=== PATIENT | female | born 1940 | race Caucasian/White ===

== ENCOUNTER 2017-07-14 17:30 | Inpatient (IN) | payer MEDICARE ==
[2017-07-14 18:19] LABS: #Eosinphils 0.3 thou/uL (0.0-0.7); #Lymphocytes 2.8 thou/uL (1.20-3.40); #Monocytes 0.8 thou/uL (0.11-0.59); #Neutrophils 7.7 thou/uL (1.40-6.50); %Basophils 0.3 % (0.0-1.0); %Eosinophils 2.3 % (0.0-10.0); %Lymphocytes 24.2 % (21.0-51.0); %Monocytes 6.6 % (0.0-10.0); %Neutrophils 66.6 % (42.0-75.0); Hemoglobin 13.5 g/dL (12.0-16.0); Mean Corpuscular HGB CONC 32.6 g/dL (32.0-36.0); Mean Corpuscular Volume 91.9 fl (81.0-99.0); Mean Platelet Volume 6.9 fL (7.4-10.4); Platelet Count 385 thou/uL (130-400); RBC Distribution Width 13.7 % (11.5-14.5); White Blood Cell (WBC) Count 11.6 thou/uL (4.8-10.8)
[2017-07-14 18:38] LABS: Anion Gap 15 mmol/L (10-20); BUN (Urea Nitrogen) 11 mg/dL (9.8-20.1); Calc. Creatinine Clearance 0 mL/min (70-130); Calcium 9.6 mg/dL (7.8-10.44); Carbon Dioxide 24 mmol/L (23-31); Chloride 103 mmol/L (98-107); Estimated GFR-MDRD 39; Glucose 97 mg/dL (83-110); Potassium 4.1 mmol/L (3.5-5.1); Sodium 138 mmol/L (136-145)
[2017-07-14] MEDS ORDERED: Fentanyl 100 MCG/2 ML VIAL ONE (22:20)
[2017-07-14 23:01] LABS: Bilirubin Negative (Negative); Blood, Urine Negative (Negative); Clarity CLOUDY (Clear); Glucose, Urine (Dipstick) Negative (Negative); Leukocyte Moderate (Negative); Nitrite Negative (Negative); Protein, Urine (Dipstick) Negative (Neg-Trace); Specific Gravity, Urine 1.016 (1.002-1.036); Urobilinogen 0.2 mg/dL (0.2-1.0); pH, Urine 5.5 (5.0-9.0)
[2017-07-14 23:02] LABS: Bacteria/HPF None Seen HPF (None Seen); Pathc Cast-AUWi Flag 1.89 (0-2.49); RBC/HPF 0-3 HPF (0-3)
[2017-07-14 23:03] LABS: Yeast-AUWi Flag 200.5 (0-25.0)
[2017-07-14 23:10] LABS: Hyaline Casts/LPF 7-10 HYALINE CAST LPF (0-3 Hyaline); Yeast-All Forms 2+ HPF (None Seen)
[2017-07-14] MEDS ORDERED: cefTRIAXone\\ROCEPHIN 2 GM in Sodium Chloride 0.9% 100 ML IVPB SCH (23:30)
[2017-07-15] MEDS ORDERED: Acetaminophen 325 MG TAB PO PRN (03:27)
[2017-07-15] MEDS ORDERED: Ondansetron HCl/PF 4 MG/2 ML Vial IVP PRN ×2 (03:27→14:03)
[2017-07-15] MEDS ORDERED: Ondansetron ODT 4 MG TAB SL PRN (03:27)
[2017-07-15] MEDS ORDERED: Sodium Chloride 0.9% 1,000 ML IV SCH (03:30)
[2017-07-15 03:37] VITALS: BMI 23.8
[2017-07-15] MEDS ORDERED: Ondansetron ODT 4 MG TAB PO PRN ×2 (04:51→12:54)
--- NOTE | 2017-07-15 05:53 | HP ---
DATE OF ADMISSION: 07/15/2017 ADMITTING PHYSICIAN: Earl Peña M.D. PRIMARY CARE PHYSICIAN: Oksana Hare M.D. CHIEF COMPLAINT: "It mo when I pee." HISTORY OF PRESENT ILLNESS: The patient is a 77-year-old female with history of mild dementia who pr esents complaining of dysuria approximately for 1 month. The patient denies fever, but reports that she has discomfort and pain whenever she urinates. She reported that she tried to self-treat with wa ter and other fluids at home and her symptoms have become worse over the last month. The condition i s exacerbated with urination and has been relieved by nothing. She denies chest pain, shortness of b reath, and diarrhea or constipation. REVIEW OF SYSTEMS: The following complete review of systems was negative, unless otherwise mentioned in the HPI or below: Constitutional: Weight loss or gain, sense of well-being, ability to conduct usual activities, exerc ise tolerance. Skin/Breast: Rash, itching, changes in hair growth or loss, nail changes, breast lumps, tenderness, swelling, nipple discharge. Eyes: Vision, double vision, tearing, blind spots, pain. ENT/Mouth: Headaches (location, time of onset, duration, precipitating factors), vertigo, lightheade dness, injury. Vision, double vision, tearing, blind spots, pain, nose bleeding, colds, obstruction, discharge, dental difficulties, gingival bleeding, dentures, neck stiffness, pain, tenderness, masses in thyroid or other areas. Cardiovascular: Precordial pain, substernal distress, palpitations, syncope, dyspnea on exertion, or thopnea, nocturnal paroxysmal dyspnea, edema, cyanosis, hypertension, heart murmurs, varicosities, ph lebitis, claudication. Respiratory: Pain, shortness of breath, wheezing, stridor, cough, hemoptysis, fever or night sweats. Gastrointestinal: Poor appetite, dysphagia, indigestion, abdominal pain, heartburn, eructation, naus ea, vomiting, hematemesis, jaundice, constipation, or diarrhea, abnormal stools (avi-colored, tarry, bloody, greasy, foul smelling), flatulence, hemorrhoids, recent changes in bowel habits. Genitourinary: Urgency, frequency, dysuria, nocturia, hematuria, polyuria, oliguria, unusual (or zabrina nge in) color of urine, stones, hesitancy, change in size of stream, dribbling, acute retention or in continence, libido, potency. Musculoskeletal: Pain, swelling, redness or heat of muscles or joints, limitation, of motion, muscul ar weakness, atrophy, cramps. Neurologic/Psychiatric: Convulsions, paralyses, tremor, incoordination, paresthesias, difficulties w ith memory of speech, sensory or motor disturbances, or muscular coordination (ataxia, tremor), emoti onal problems, anxiety, depression, previous psychiatric care, unusual perceptions, hallucinations. Allergy/Immunologic: Skin rash, anemia, bleeding tendency, polydipsia, polyuria, intolerance to heat or cold. 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 Dysl ipidemia and COPD. PAST SURGICAL HISTORY: Positive for partial colectomy with colostomy, appendectomy, cholecystectomy, hysterectomy, orthopedic surgery, left hip fracture repair, and left femur fracture repair. PSYCHIATRIC HISTORY: Positive for depression and signs of dementia. FAMILY HISTORY: Noncontributory to this case. SOCIAL HISTORY: She continues to smoke one pack per day, denies alcohol, denies illicit drugs. HOME MEDICATIONS: Unable to obtain at this point. KNOWN DRUG ALLERGIES: CODEINE, LIDOCAINE, NOVOCAIN, and SULFA DRUGS. PHYSICAL EXAMINATION: VITAL SIGNS: Temperature 98.0, blood pressure 111/73, pulse 93, temperature 98, satting 95% on room air. GENERAL: She is somewhat disheveled, in no apparent distress, answers questions appropriately. HEAD: Normocephalic, atraumatic. EYES: PERRL. Extraocular muscles intact. ENT: Within normal limits. NECK: Supple, full range of motion. Trachea midline. CHEST: No rhonchi, no wheezes. CARDIOVASCULAR: Regular rate and rhythm. Grade 2/6 systolic ejection murmur. ABDOMEN: Tenderness in the suprapubic region, right lower quadrant has a colostomy bag which appears to be operating properly. EXTREMITIES: No clubbing, cyanosis or edema. NEUROLOGIC: Oriented to person and place. Cranial nerves II-XII grossly intact. SKIN: Warm, dry, normal in color. LABORATORY DATA AND IMAGES: CBC shows a white count of 11.6, hemoglobin 13.5, hematocrit 41.3, plate lets 385, no left shift. Chemistry shows sodium 138, potassium 4.1, chloride 103, BUN 11, creatinine 1.34. Lactic acid 4.0, calcium 9.6. Urinalysis: Yellow, cloudy, moderate leukocytes, no bacteria seen, 11-20 wbc's, 2+ yeast. ASSESSMENT: 1. Cystitis. 2. Sepsis. PLAN: The patient admitted to the medical floor. She will be treated with IV antibiotics. We will also administer her IV fluids. Once the patient's medication record is in our system, we will resume her home medication for chronic medical problems as well. Deep venous thrombosis prophylaxis will b e via sequential compression devices. We will monitor her for any untoward conditions or development s.
[2017-07-15] MEDS: Sodium Chloride 0.9% 1,000 ML IV SCH ×2 (13:05→19:59)
--- NOTE | 2017-07-15 14:17 | PDOC.PN ---
- Subjective Encounter Start Date: 07/15/17 Encounter Start Time: 14:00 Subjective: f/u for sepsis of suspected urinary origin receiving Levaquin. -: Nsg reports hypotension with low-volume IVF's. No CP, some cough. - Objective MAR Reviewed: Yes Vital Signs & Weight: Vital Signs (12 hours) Temp Pulse Resp BP Pulse Ox 07/15/17 11:00 97.4 F L 104 H 20 100/49 L 95 07/15/17 08:00 98.7 F 108 H 20 137/80 92 L 07/15/17 03:25 97.5 F L 97 18 122/64 98 07/15/17 03:23 97.5 F L 97 18 98 Weight Weight 130 lb 3 oz Result Diagrams: 07/14/17 18:07 07/14/17 18:07 Additional Labs: Microbiology 07/14/17 22:44 Urine Straight Catheter Urine Culture - Preliminary NO GROWTH AT 12 HOURS Radiology Reviewed by me: Yes (PCXR - pending) Phys Exam - Physical Examination alert, responds to questions, appears anxious HEENT: PERRLA, oral pharynx no lesions Neck: no JVD, supple coarse rhonchi bilat Cardiovascular: RRR Gastrointestinal: soft, non-tender, no distention, positive bowel sounds Musculoskeletal: no edema, pulses present Neurological: moves all 4 limbs Psychiatric: A&O x 3 Skin: normal turgor, cap refill <2 seconds Dx/Plan (1) Sepsis Code(s): A41.9 - SEPSIS, UNSPECIFIED ORGANISM Status: Suspected Comment: Suspected due to urinary source, continue IV abx, monitor cx results, increase IVF's 150ml/h (2) UTI (urinary tract infection) Status: Acute Comment: Suspected though initial Ucx negative, continue Levaquin 750mg IV daily, add Rocephin 2gm IV daily for double-coverage pending final cx results (3) COPD (chronic obstructive pulmonary disease) Status: Chronic Comment: No exacerbation currently, Duonebs q6h prn (4) Physical deconditioning Code(s): R53.81 - OTHER MALAISE Status: Chronic (5) Hypotension Status: Acute Comment: Secondary to sepsis and dehydration, continue IVF's, titrate IVF's to response - Plan continue antibiotics, PT/OT, social insurance adviser, respiratory therapy, DVT proph w/ SCDs Continue IV Levaquin -: Add Rocephin 2gm IV daily -: Increase IVF's 150ml/h -: Add Duonebs q6h prn -: AM lab: BMP, CBC * PCXR today
[2017-07-15] MEDS: cefTRIAXone\\ROCEPHIN 2 GM in Sodium Chloride 0.9% 100 ML IVPB SCH (14:53)
--- NOTE | 2017-07-15 15:22 | RAD ---
PORTABLE CHEST 1 VIEW: Date: 07/15/17 Time: 1433 hours HISTORY: COPD and cough. FINDINGS: Comparison made with exam of 06/25/16. The heart size is prominent, but stable. The aorta is tortuous. No evidence of old granulomatous dise ase is again seen. No confluent areas of consolidation, pneumothorax, roshan pulmonary edema, or pleur al effusions are seen. There are degenerative changes in the spine. IMPRESSION: No acute process. POS: [facility]
[2017-07-16] MEDS: Sodium Chloride 0.9% 1,000 ML IV SCH ×4 (03:59→20:27)
[2017-07-16] MEDS: Acetaminophen 500 MG TAB PO PRN (08:32)
[2017-07-16 08:48] LABS: #Eosinphils 0.2 thou/uL (0.0-0.7); #Monocytes 0.5 thou/uL (0.11-0.59); %Eosinophils 2.6 % (0.0-10.0); %Lymphocytes 26.5 % (21.0-51.0); %Monocytes 6.1 % (0.0-10.0); %Neutrophils 64.7 % (42.0-75.0); Hemoglobin 10.6 g/dL (12.0-16.0); Mean Corpuscular HGB CONC 32.1 g/dL (32.0-36.0); Mean Corpuscular Hemoglobin 29.9 pg (27.0-31.0); Mean Corpuscular Volume 93.1 fl (81.0-99.0); Mean Platelet Volume 6.8 fL (7.4-10.4); Platelet Count 288 thou/uL (130-400); RBC Distribution Width 13.7 % (11.5-14.5); Red Blood Cell (RBC) Count 3.54 mill/uL (4.20-5.40); White Blood Cell (WBC) Count 7.7 thou/uL (4.8-10.8)
[2017-07-16 09:22] LABS: Anion Gap 12 mmol/L (10-20); BUN (Urea Nitrogen) 8 mg/dL (9.8-20.1); Calc. Creatinine Clearance 55 mL/min (70-130); Calcium 8.1 mg/dL (7.8-10.44); Carbon Dioxide 18 mmol/L (23-31); Chloride 112 mmol/L (98-107); Estimated GFR-MDRD 67; Glucose 67 mg/dL (83-110); Potassium 3.8 mmol/L (3.5-5.1); Sodium 138 mmol/L (136-145)
[2017-07-16] MEDS: cefTRIAXone\\ROCEPHIN 2 GM in Sodium Chloride 0.9% 100 ML IVPB SCH (13:45)
[2017-07-16] MEDS: Ondansetron ODT 4 MG TAB PO PRN (20:20)
--- NOTE | 2017-07-16 23:38 | PDOC.PN ---
- Subjective Encounter Start Date: 07/16/17 Encounter Start Time: 18:00 - Objective Vital Signs & Weight: Vital Signs (12 hours) Temp Pulse Resp BP Pulse Ox 07/16/17 20:31 98.4 F 95 20 115/75 96 07/16/17 20:19 87 16 95 07/16/17 20:00 98.4 F 95 20 96 07/16/17 16:11 110/69 Weight Weight 130 lb 3 oz I&O: 07/15/17 07/16/17 07/17/17 06:59 06:59 06:59 Intake Total 2024 Output Total 350 Balance 1675 Result Diagrams: 07/17/17 04:17 07/17/17 04:17 Phys Exam - Physical Examination Constitutional: NAD HEENT: PERRLA, moist MMs Neck: no JVD Respiratory: no wheezing, no rales, no rhonchi, clear to auscultation bilateral Cardiovascular: RRR, no significant murmur, no rub Gastrointestinal: soft, non-tender, positive bowel sounds Musculoskeletal: no edema, pulses present Neurological: moves all 4 limbs Dx/Plan - Plan cont current plan of care, continue antibiotics * continue antibiotics, PT/OT, social media designer, respiratory therapy, DVT proph w /SCDs UTI * pending UCx finalization * empiric ceftriaxone, levaquin * IVF continue @100cc/ hr while appetite is still poor URI * CXR rev, neg * repeat labs in AM * on RA * nebs prn diet: as tolerated activity: PT Review of Systems - Medications/Allergies Allergies/Adverse Reactions: Allergies Allergy/AdvReac Type Severity Reaction Status Date / Time lidocaine Allergy Severe Anaphylaxis Verified 07/15/17 03:27 procaine [Procaine] Allergy Severe Anaphylaxis Verified 07/15/17 03:27 Sulfa (Sulfonamide Allergy Unknown Verified 07/15/17 03:27 Antibiotics) codeine Allergy Nausea Verified 07/15/17 03:27 Medications: Current Medications Acetaminophen (Tylenol) 1,000 mg PO Q6H PRN PRN Reason: Headache/Fever or Mild Pain Last Admin: 07/17/17 07:59 Dose: 1,000 mg Albuterol/Ipratropium (Duoneb) 3 ml NEB [id number] DANIEL Last Admin: 07/17/17 18:16 Dose: Not Given Dronabinol (Marinol) 2.5 mg PO BID-AC [facility] Last Admin: 07/17/17 16:37 Dose: 2.5 mg Guaifenesin (Robitussin Sf) 100 mg PO Q4H PRN PRN Reason: Cough Levofloxacin (Levaquin) 750 mg PO 0600 [facility] Ondansetron HCl (Zofran Odt) 4 mg PO Q6H PRN PRN Reason: Nausea/Vomiting Last Admin: 07/17/17 10:07 Dose: 4 mg Ondansetron HCl (Zofran) 4 mg IVP Q6H PRN PRN Reason: Nausea/Vomiting Quetiapine Fumarate (Seroquel) 50 mg PO [facility] Last Admin: 07/17/17 20:27 Dose: 50 mg Sodium Chloride ([place] Nasal [place] 0.65%) 1 ml EA NARE TID PRN PRN Reason: Nasal Congestion
[2017-07-17] MEDS: Sodium Chloride 0.9% 1,000 ML IV SCH ×3 (03:30→16:41)
[2017-07-17 05:10] LABS: #Eosinphils 0.2 thou/uL (0.0-0.7); #Lymphocytes 1.9 thou/uL (1.20-3.40); #Monocytes 0.4 thou/uL (0.11-0.59); %Basophils 0.3 % (0.0-1.0); %Eosinophils 3.6 % (0.0-10.0); %Lymphocytes 28.2 % (21.0-51.0); %Monocytes 6.4 % (0.0-10.0); %Neutrophils 61.5 % (42.0-75.0); Hemoglobin 10.3 g/dL (12.0-16.0); Mean Corpuscular HGB CONC 32.4 g/dL (32.0-36.0); Mean Corpuscular Hemoglobin 30.2 pg (27.0-31.0); Mean Platelet Volume 6.8 fL (7.4-10.4); Platelet Count 275 thou/uL (130-400); RBC Distribution Width 13.7 % (11.5-14.5); White Blood Cell (WBC) Count 6.6 thou/uL (4.8-10.8)
[2017-07-17 05:32] LABS: Anion Gap 10 mmol/L (10-20); BUN (Urea Nitrogen) 5 mg/dL (9.8-20.1); Calc. Creatinine Clearance 60 mL/min (70-130); Carbon Dioxide 18 mmol/L (23-31); Chloride 112 mmol/L (98-107); Estimated GFR-MDRD 75; Glucose 81 mg/dL (83-110); Potassium 3.4 mmol/L (3.5-5.1); Sodium 137 mmol/L (136-145)
[2017-07-17] MEDS: Acetaminophen 500 MG TAB PO PRN (07:59)
[2017-07-17] MEDS: Ondansetron ODT 4 MG TAB PO PRN (10:07)
[2017-07-17] MEDS ORDERED: Sodium Chloride 0.65% Nasal 44 ML BOT EA NARE PRN (11:02)
[2017-07-17] MEDS ORDERED: Diabetic Tussin 200 MG/10 ML UDCUP PO PRN (11:03)
--- NOTE | 2017-07-17 11:05 | PDOC.PN ---
- Subjective Encounter Start Date: 07/17/17 Encounter Start Time: 11:05 Subjective: nsg notes rev, aneta ovn, no new c/o per nsg is eating slightly more -: denies any SOB, does have some cough, scantily productive per pt - Objective Vital Signs & Weight: Vital Signs (12 hours) Temp Pulse Resp BP Pulse Ox 07/17/17 08:00 97.9 F 96 18 128/82 81 L Weight Weight 130 lb 3 oz I&O: 07/16/17 07/17/17 07/18/17 06:59 06:59 06:59 Intake Total 3862 Output Total 350 Balance 3512 Result Diagrams: 07/17/17 04:17 07/17/17 04:17 Phys Exam - Physical Examination Constitutional: NAD HEENT: PERRLA, moist MMs Neck: no nodes coarse throughout with intermittent end expiratory wheezing Cardiovascular: RRR, no significant murmur, no rub Gastrointestinal: soft, non-tender, positive bowel sounds Musculoskeletal: no edema, pulses present Neurological: moves all 4 limbs Psychiatric: normal affect Dx/Plan - Plan * continue antibiotics, PT/OT, social work administrator, respiratory therapy, DVT proph w /SCDs UTI * d/c empiric ceftriaxone, continue with oral levaquin for a total 5d course of abx * d/c IVF as PO intake has improved, continue to monitor I/O URI * CXR rev, neg * on RA * nebs prn diet: as tolerated activity: PT D/C pending PT eval Review of Systems - Medications/Allergies Allergies/Adverse Reactions: Allergies Allergy/AdvReac Type Severity Reaction Status Date / Time lidocaine Allergy Severe Anaphylaxis Verified 07/15/17 03:27 procaine [Procaine] Allergy Severe Anaphylaxis Verified 07/15/17 03:27 Sulfa (Sulfonamide Allergy Unknown Verified 07/15/17 03:27 Antibiotics) codeine Allergy Nausea Verified 07/15/17 03:27 Medications: Current Medications Acetaminophen (Tylenol) 1,000 mg PO Q6H PRN PRN Reason: Headache/Fever or Mild Pain Last Admin: 07/17/17 07:59 Dose: 1,000 mg Albuterol/Ipratropium (Duoneb) 3 ml NEB [id number] DANIEL Last Admin: 07/17/17 18:16 Dose: Not Given Dronabinol (Marinol) 2.5 mg PO BID-AC [facility] Last Admin: 07/17/17 16:37 Dose: 2.5 mg Guaifenesin (Robitussin Sf) 100 mg PO Q4H PRN PRN Reason: Cough Levofloxacin (Levaquin) 750 mg PO 0600 [facility] Ondansetron HCl (Zofran Odt) 4 mg PO Q6H PRN PRN Reason: Nausea/Vomiting Last Admin: 07/17/17 10:07 Dose: 4 mg Ondansetron HCl (Zofran) 4 mg IVP Q6H PRN PRN Reason: Nausea/Vomiting Quetiapine Fumarate (Seroquel) 50 mg PO [facility] Last Admin: 07/17/17 20:27 Dose: 50 mg Sodium Chloride ([place] Nasal [place] 0.65%) 1 ml EA NARE TID PRN PRN Reason: Nasal Congestion
[2017-07-17] MEDS: Dronabinol 2.5 MG CAP PO SCH (16:37)
[2017-07-18] MEDS: Acetaminophen 500 MG TAB PO PRN (05:38)
[2017-07-18] MEDS: Dronabinol 2.5 MG CAP PO SCH ×2 (09:41→18:10)
--- NOTE | 2017-07-18 12:54 | PQF ---
CLINICAL DOCUMENTATION IMPROVEMENT CLARIFICATION FORM: ICD-10 Updated PLEASE DO AN ADDENDUM TO THE PROGRESS NOTE WITH ANY DOCUMENTATION UPDATES OR ADDITIONS AND CARRY THROUGH TO DC SUMMARY. THANK YOU. DATE: 07/18/17 ATTN: Dr. Young Please exercise your independent, professional judgment in responding to the clarification form. Clinical indicators are provided on the bottom of this form for your review Please check appropriate box(s) to clarify if the following diagnosis has been ruled in our ruled out: SEPSIS (H&P) . [ x ] Ruled in diagnosis [ ] Continue to treat [ ] Resolved [ ] Ruled out diagnosis [ ] Cannot rule out diagnosis [ ] Other diagnosis [ ] Unable to determine For continuity of documentation, please document condition throughout progress notes and discharge summary. Thank You. CLINICAL INDICATORS - SIGNS / SYMPTOMS / LABS H&P: BP 111/73, PULSE 93 WHITE COUNT 11.6 LACTIC ACID 4.0 ASSESSMENT: CYSTITIS SEPSIS PN 07/15/17: SEPSIS. SUSPECTED D/T URINARY SOURCE RISKS: H&P: DYSURIA APPROXIMATELY FOR 1 MONTH. COPD. PN 07/17: UTI TREATMENT: ORDER 07/15: IV ROCEPHIN 2 GM Q 24 HR. DC'D 07/17. ORDER: 07/17: LEVAQUIN 750 MG PO Thank you, Cindy (This form is maintained as a part of the permanent medical record) 2015 [employer] All Rights Reserved Cindy Merino RN, BSN [email or web address] Office: [phone] [facility]
[2017-07-18] MEDS: Ondansetron ODT 4 MG TAB PO PRN (18:10)
[2017-07-18 19:50] VITALS: BP 128/89; TEMP 99.2
== END 2017-07-18 20:50 | disposition home or self-care (01) | DRG 872 ==
LOC: ERS 17:30 → T4-A 23:30
PROVIDERS: ADMIT Internal Medicine Addiction Medicine; ATTEND Internal Medicine Addiction Medicine
DX: A41.9 Sepsis, unspecified organism (principal); E86.0 Dehydration; J44.9 Chronic obstructive pulmonary disease, unspecified; N30.90 Cystitis, unspecified without hematuria; E78.5 Hyperlipidemia, unspecified; F17.210 Nicotine dependence, cigarettes, uncomplicated; F32.9 Major depressive disorder, single episode, unspecified; Z93.3 Colostomy status
CPT/HCPCS: 36415; 51701; 71045; 80048; 81003; 81015; 83605; 85025; 87081; 87086; 87430; 94640; 96361; 96365; 96375; A4353; G8978-GP-CN; G8979-GP-CN; G8980-GP-CN; J0696; J1956; J3010; J7050; J7620; Q0162; Q0167

== ENCOUNTER 2017-11-11 16:12 | Inpatient (IN) | payer MEDICARE ==
[2017-11-11] MEDS ORDERED: Albuterol Sulfate 2.5 mg/3 ml Neb ONE (16:44)
[2017-11-11] MEDS ORDERED: Albuterol Sulfate 2.5 mg/0.5 ml Neb ONE (16:44)
--- NOTE | 2017-11-11 17:11 | RAD ---
CHEST ONE VIEW: 11/11/17 HISTORY: Dyspnea. COMPARISON: 07/15/17 FINDINGS: Atherosclerosis of the aorta. Normal cardiac silhouette. The pulmonary vessels and hilum are normal. Pleural and parenchymal changes in the left lung base, similar to the prior examination suggesting at electasis. Chronic changes throughout the lung parenchyma. No pneumothorax or osseous abnormalities. IMPRESSION: No acute cardiopulmonary process. POS: [facility]
[2017-11-11 17:52] LABS: #Eosinphils 0.2 thou/uL (0.0-0.7); #Lymphocytes 2.6 thou/uL (1.20-3.40); #Monocytes 0.2 thou/uL (0.11-0.59); #Neutrophils 8.3 thou/uL (1.40-6.50); %Basophils 0.2 % (0.0-1.0); %Eosinophils 1.4 % (0.0-10.0); %Lymphocytes 22.8 % (21.0-51.0); %Monocytes 2.1 % (0.0-10.0); %Neutrophils 73.5 % (42.0-75.0); Hemoglobin 13.4 g/dL (12.0-16.0); Mean Corpuscular Hemoglobin 29.4 pg (27.0-31.0); Mean Corpuscular Volume 89.1 fl (81.0-99.0); Mean Platelet Volume 6.8 fL (7.4-10.4); Platelet Count 304 thou/uL (130-400); RBC Distribution Width 14.2 % (11.5-14.5); Red Blood Cell (RBC) Count 4.55 mill/uL (4.20-5.40); White Blood Cell (WBC) Count 11.3 thou/uL (4.8-10.8)
[2017-11-11 18:14] LABS: ALT (SGPT) 11 U/L (8-55); AST (SGOT) 17 U/L (5-34); Albumin 4.2 g/dL (3.4-4.8); Alkaline Phosphatase 111 U/L (40-150); Anion Gap 17 mmol/L (10-20); BUN (Urea Nitrogen) 8 mg/dL (9.8-20.1); Bilirubin, Total 0.5 mg/dL (0.2-1.2); Calc. Creatinine Clearance 0 mL/min (70-130); Calcium 9.4 mg/dL (7.8-10.44); Carbon Dioxide 20 mmol/L (23-31); Chloride 103 mmol/L (98-107); Estimated GFR-MDRD 43; Globulin 3.5 g/dL (2.4-3.5); Glucose 137 mg/dL (83-110); Potassium 3.5 mmol/L (3.5-5.1); Protein, Total 7.7 g/dL (6.0-8.3); Sodium 136 mmol/L (136-145)
[2017-11-11 18:19] LABS: CKMB 1.1 ng/mL (0-6.6); Troponin I Less than 0.010 ng/mL (< 0.028)
[2017-11-11] MEDS ORDERED: cefTRIAXone\\ROCEPHIN 2 GM VIAL ONE (18:40)
[2017-11-11] MEDS ORDERED: Azithromycin 500 MG in Sodium Chloride 0.9% 250 ML 250 ML IVPB SCH (18:45)
[2017-11-11] MEDS ORDERED: Sodium Chloride 0.9% 1,000 ML IV SCH (21:36)
[2017-11-11] MEDS ORDERED: Acetaminophen 325 MG TAB PO PRN (21:36)
[2017-11-11] MEDS ORDERED: Ondansetron HCl/PF 4 MG/2 ML Vial IVP PRN (21:36)
[2017-11-11] MEDS ORDERED: Ondansetron ODT 4 MG TAB SL PRN (21:36)
[2017-11-11] MEDS ORDERED: Albuterol Sulfate 2.5 mg/3 ml Neb NEB PRN (22:03)
[2017-11-11] MEDS ORDERED: Milk Of Magnesia 30 ML UDCUP PO PRN (22:05)
[2017-11-11] MEDS ORDERED: Sodium Chloride 0.65% Nasal 44 ML BOT EA NARE PRN (22:06)
[2017-11-11] MEDS ORDERED: Promethazine 25 MG TAB PO PRN (22:06)
[2017-11-11 22:08] VITALS: BMI 24.2
--- NOTE | 2017-11-12 05:58 | HP ---
PRESENTING COMPLAINT: Shortness of breath. HISTORY OF PRESENT ILLNESS: Ms. Mitul Rodriguez is a 77-year-old female with a past medical history of chronic respiratory failure, COPD, dyslipidemia, who presented to the emergency room with a 1-week history of progressively worsening shortness of breath associated with cough productive of yellowish sputum. She denies fever or chills. She reports that she still smokes cigarettes as she smokes about 1 pack per day. She also reports some nausea and wheezing. She denies chest pain , palpitation, PND, orthopnea, or lower extremity edema. Apart from her nausea , she has no abdominal or urinary symptoms. PAST MEDICAL HISTORY: COPD, hyperlipidemia. PAST SURGICAL HISTORY: History of colostomy; appendectomy; cholecystectomy; hysterectomy; multiple orthopedic surgeries, left hip and left femur. PSYCHIATRIC HISTORY: Depression, cognitive impairment. FAMILY HISTORY: Reviewed and noncontributory. SOCIAL HISTORY: She smokes 1 pack of cigarettes per day. Denies use of alcohol or illicit drugs. ALLERGIES: CODEINE, LIDOCAINE, NOVOCAIN, and SULFA DRUGS. HOME MEDICATIONS: Ipratropium/albuterol sulfate 3 mL q.6 hours, citalopram 10 mg daily, Marinol 2.5 mg b.i.d. a.c., ondansetron 4 mg q.6 hours p.r.n. for nausea, promethazine 25 mg q.6 hours p.r.n. for nausea, Seroquel 50 mg at bedtime, rosuvastatin 10 mg daily, sodium chloride one in each naris t.i.d. REVIEW OF SYSTEMS: All systems reviewed are negative except as stated in HPI. PHYSICAL EXAMINATION: VITAL SIGNS: Blood pressure 105/66, pulse rate 94, respiratory rate 20, oxygen saturation 100% on 3 liters of oxygen. GENERAL: Not in acute distress on 2 liters of nasal cannula oxygen and saturating well. HEENT: Normocephalic, atraumatic. Not pale, nonicteric. Moist mucous membranes. PERRLA, EOMI. NECK: Supple, full range of movement. No JVD. RESPIRATORY: Widespread wheezing bilaterally. CARDIOVASCULAR: S1, S2 only. Regular rate and rhythm. No murmurs, rubs, or gallops. ABDOMEN: Soft, nontender, nondistended. Bowel sounds normoactive. MUSCULOSKELETAL: No edema. Moves all extremities spontaneously. SKIN: Warm, dry, well-perfused. No rashes or lesions. PSYCHIATRIC: Normal mood and affect. No SIs or HIs. NEUROLOGIC: Alert and well oriented to time, place, and person. No focal deficits. LABORATORY AND DIAGNOSTIC DATA: WBC 11.3, hemoglobin 13.4, platelet count 304, 000. Sodium 136, potassium 3.5, carbon dioxide 20, anion gap 17, BUN 8, creatinine 1.21. Chest x-ray, no acute cardiopulmonary process. EKG no signs of acute ischemia. ASSESSMENT AND PLAN: 1. Chronic obstructive pulmonary disease exacerbation: The patient with a history of chronic respiratory failure who presented with worsening shortness of breath and wheezing. She has been admitted for chronic obstructive pulmonary disease exacerbation. She will be placed on IV azithromycin and ceftriaxone. Cultures will be collected. She will also receive IV steroids and bronchodilator nebulizer treatments. We will also consult Pulmonary. 2. Chronic respiratory failure: Continue oxygen supplementation. 3. Hyperlipidemia. We will resume home medications. 4. Acute kidney injury likely due to volume repletion. We will start patient on parenteral fluids and check serum creatinine in the morning. 5. Tobacco abuse. Patient has a history of chronic tobacco abuse. We will work counselor the patient on importance of cessation as this might have been the trigger for her chronic obstructive pulmonary disease exacerbation. Deep venous thrombosis prophylaxis with subcutaneous heparin. CODE STATUS: FULL CODE. MTDD
[2017-11-12 07:35] LABS: #Basophils 0.1 thou/uL (0.0-0.2); #Lymphocytes 1.1 thou/uL (1.20-3.40); #Monocytes 0.1 thou/uL (0.11-0.59); #Neutrophils 8.3 thou/uL (1.40-6.50); %Basophils 0.6 % (0.0-1.0); %Eosinophils 0.1 % (0.0-10.0); %Lymphocytes 11.5 % (21.0-51.0); %Monocytes 0.6 % (0.0-10.0); %Neutrophils 87.2 % (42.0-75.0); Hemoglobin 12.2 g/dL (12.0-16.0); Mean Corpuscular HGB CONC 32.8 g/dL (32.0-36.0); Mean Corpuscular Hemoglobin 29.8 pg (27.0-31.0); Mean Corpuscular Volume 90.9 fl (81.0-99.0); Mean Platelet Volume 6.8 fL (7.4-10.4); Platelet Count 277 thou/uL (130-400); RBC Distribution Width 14.2 % (11.5-14.5); Red Blood Cell (RBC) Count 4.09 mill/uL (4.20-5.40); White Blood Cell (WBC) Count 9.5 thou/uL (4.8-10.8)
[2017-11-12] MEDS: Dronabinol 2.5 MG CAP PO SCH ×2 (07:51→18:03)
[2017-11-12] MEDS: cefTRIAXone\\ROCEPHIN 1 GM in Sodium Chloride 0.9% 100 ML IVPB SCH (07:51)
[2017-11-12] MEDS: Rosuvastatin 10 MG TAB PO SCH (07:51)
[2017-11-12] MEDS: Citalopram 10 MG TAB PO SCH (07:51)
[2017-11-12] MEDS: Docusate 100 MG CAP PO SCH ×2 (07:51→20:18)
[2017-11-12] MEDS: Heparin 5,000 UNITS/ML VIAL SC SCH ×4 (07:54→20:23)
[2017-11-12 08:04] LABS: Anion Gap 16 mmol/L (10-20); BUN (Urea Nitrogen) 9 mg/dL (9.8-20.1); Calc. Creatinine Clearance 53 mL/min (70-130); Carbon Dioxide 15 mmol/L (23-31); Chloride 108 mmol/L (98-107); Estimated GFR-MDRD 55; Glucose 143 mg/dL (83-110); Potassium 4.2 mmol/L (3.5-5.1); Sodium 135 mmol/L (136-145)
[2017-11-12] MEDS: Azithromycin 500 MG in Sodium Chloride 0.9% 250 ML 250 ML IVPB SCH (09:13)
--- NOTE | 2017-11-12 09:59 | PDOC.PN ---
- Subjective Encounter Start Date: 11/12/17 Encounter Start Time: 09:57 Subjective: sob, still smoking at home. says its too late to quit - Objective Resuscitation Status: Resuscitation Status FULL:Full Resuscitation MAR Reviewed: Yes Vital Signs & Weight: Vital Signs (12 hours) Temp Pulse Resp BP Pulse Ox 11/12/17 08:18 97.6 F 95 16 129/50 L 98 11/12/17 08:00 97.6 F 95 16 11/12/17 07:21 86 20 98 11/12/17 04:38 97.3 F L 89 18 113/68 98 11/11/17 23:58 98 16 97 11/11/17 22:46 97.8 F 91 18 92 L 11/11/17 22:05 95 I&O: 11/11/17 11/12/17 11/13/17 06:59 06:59 06:59 Intake Total 800 Balance 800 Result Diagrams: 11/12/17 07:25 11/12/17 07:25 Phys Exam - Physical Examination Neck: no JVD hyperresonant, diffuse wheezes Cardiovascular: RRR, no significant murmur Gastrointestinal: soft, positive bowel sounds Musculoskeletal: no edema Dx/Plan (1) COPD exacerbation Code(s): J44.1 - CHRONIC OBSTRUCTIVE PULMONARY DISEASE W (ACUTE) EXACERBATION Status: Acute (2) Anxiety and depression Code(s): F41.9 - ANXIETY DISORDER, UNSPECIFIED; F32.9 - MAJOR DEPRESSIVE DISORDER, SINGLE EPISODE, UNSPECIFIED Status: Acute (3) Chronic respiratory failure Code(s): J96.10 - CHRONIC RESPIRATORY FAILURE, UNSP W HYPOXIA OR HYPERCAPNIA Status: Chronic Qualifiers: (4) Physical deconditioning Code(s): R53.81 - OTHER MALAISE Status: Chronic (5) Tobacco abuse Code(s): Z72.0 - TOBACCO USE Status: Acute - Plan cont nebs, steroids, antibx, O2 -: difficult case with ongoing tobacco dependence * .
--- NOTE | 2017-11-12 15:38 | CON ---
DATE OF CONSULTATION: 11/12/2017 HISTORY OF PRESENT ILLNESS: Ms. Bauman is a 77-year-old female, who was actually in the hospital and discharged 5 weeks ago. She presents with shortness of breath. She was admitted with a diagnosis of COPD exacerbation. She says she is feeling better. She had sputum production she says for several weeks leading up to this admission. She has had no fever or chills. She still smokes a pack a day. PAST MEDICAL HISTORY: Remarkable for, 1. Colostomy. 2. Lipid disorder. 3. Appendectomy. 4. Cholecystectomy. 5. Multiple fracture surgeries. 6. History of a colectomy with mechanical ventilation, postoperatively in September. 7. History of spinal surgery with Dr. Turner in the past. 8. History of hysterectomy. 9. History of pneumonia in the past. 10. History of old granulomatous disease. 11. Being hospitalized for depression and was seen by Psychiatry then. 12. History of? delayed gastric emptying based on an upper endoscopy in the past. 13. History of seizures. 14. History of nephrolithiasis. 15. History of mood disorder with depression and psychosis in the past per the psychiatrists. 16. History of achalasia and gastroparesis, diagnosed in [address] Fish. 17. History of dilation of esophageal sphincter. 18. History of chronic obstructive pulmonary disease exacerbation and hospitalization in 2003 and 2007. 19. History of drug overdose in 2009 creating an encephalopathy. 20. History of hip and femur fracture in 06/26, requiring surgery. 21. History of a massively dilated colon on one admission leading to a colectomy. 22. History of over a pack to 2 pack a day smoking. SOCIAL HISTORY: She is not a drinker. FAMILY HISTORY: Negative for lung disease in early age. This is a positive family history of cancer in both parents. REVIEW OF SYSTEMS: 10 point review otherwise negative. PHYSICAL EXAMINATION: GENERAL: 77 y/o admitted for COPD exac. VITAL SIGNS: Afebrile, heart rate is 91, respiratory rate is 18, oximetry is 100. She is on 2 liters per minute. She has some choreiform movements. HEENT: Pupils are equal. Sclerae is anicteric. NECK: Supple. LUNGS: Remarkable for distant breath sounds with wheezes bilaterally. HEART: Regular rhythm. ABDOMEN: Soft and nontender. EXTREMITIES: Without clubbing, cyanosis, or edema. LABORATORY DATA: White count 9.5, hemoglobin 12.2, platelets 277. Sodium 135, potassium 4.2, chloride 108, bicarbonate 15, BUN 9, creatinine 0.98, glucose 143. Chest radiograph shows no alveolar infiltrates. IMPRESSION: Chronic obstructive pulmonary disease exacerbation. PLAN: Continue steroids, nebulizer treatments, respiratory care. She will be treated with p.o. antimicrobial therapy. Hopefully, she will be a candidate to go home in a day or two. This is a 50 minute consult, greater than 50% of the time was spent on the unit with coordination of care. ASPEN
[2017-11-12] MEDS: Ondansetron ODT 4 MG TAB PO PRN (16:40)
--- NOTE | 2017-11-12 17:03 | ADD-CON ---
ADDENDUM This is a 50 minutes consult, great than 50 percent of the time was spent in coordinating care.
[2017-11-13] MEDS ORDERED: Acetaminophen 325 MG TAB PO PRN (08:13)
[2017-11-13] MEDS: Rosuvastatin 10 MG TAB PO SCH (08:17)
[2017-11-13] MEDS: Docusate 100 MG CAP PO SCH ×2 (08:17→20:17)
[2017-11-13] MEDS: Citalopram 10 MG TAB PO SCH (08:17)
[2017-11-13] MEDS: Lorazepam 1 MG TAB PO SCH ×2 (08:17→20:17)
[2017-11-13] MEDS: Heparin 5,000 UNITS/ML VIAL SC SCH ×3 (08:18→20:17)
[2017-11-13] MEDS: Dronabinol 2.5 MG CAP PO SCH ×2 (08:18→16:28)
[2017-11-13] MEDS: cefTRIAXone\\ROCEPHIN 1 GM in Sodium Chloride 0.9% 100 ML IVPB SCH (09:42)
--- NOTE | 2017-11-13 10:46 | PDOC.PN ---
- Subjective Encounter Start Date: 11/13/17 Encounter Start Time: 10:44 Subjective: coughing, some sob - Objective Resuscitation Status: Resuscitation Status FULL:Full Resuscitation MAR Reviewed: Yes Vital Signs & Weight: Vital Signs (12 hours) Temp Pulse Resp BP Pulse Ox 11/13/17 08:00 97.8 F 83 18 11/13/17 07:09 97.8 F 83 18 96/60 98 11/13/17 06:52 92 20 96 11/13/17 00:24 94 L I&O: 11/12/17 11/13/17 11/14/17 06:59 06:59 06:59 Intake Total 800 750 Output Total 500 Balance 800 250 Result Diagrams: 11/12/17 07:25 11/12/17 07:25 Phys Exam - Physical Examination Neck: no JVD coarse BS with rhonchi Cardiovascular: RRR Gastrointestinal: soft, positive bowel sounds Musculoskeletal: no edema Dx/Plan (1) COPD exacerbation Code(s): J44.1 - CHRONIC OBSTRUCTIVE PULMONARY DISEASE W (ACUTE) EXACERBATION Status: Acute (2) Anxiety and depression Code(s): F41.9 - ANXIETY DISORDER, UNSPECIFIED; F32.9 - MAJOR DEPRESSIVE DISORDER, SINGLE EPISODE, UNSPECIFIED Status: Acute (3) Chronic respiratory failure Code(s): J96.10 - CHRONIC RESPIRATORY FAILURE, UNSP W HYPOXIA OR HYPERCAPNIA Status: Chronic Qualifiers: (4) Physical deconditioning Code(s): R53.81 - OTHER MALAISE Status: Chronic (5) Tobacco abuse Code(s): Z72.0 - TOBACCO USE Status: Acute - Plan cont nebs, steroids, O2 etc -: appreciate Dr Bowman's input * .
[2017-11-13] MEDS: Azithromycin 500 MG in Sodium Chloride 0.9% 250 ML 250 ML IVPB SCH (10:51)
--- NOTE | 2017-11-13 12:45 | PRG ---
DATE OF SERVICE: 11/13/2017 SUBJECTIVE: Jennifer Bauman has no IV access. She has an IV in her toe. She is clinically better. She still has wheezing on exam, but it is mild. OBJECTIVE: VITAL SIGNS: She is afebrile, heart rate 83, respiratory rate 18, oximetry is 98 on 2 liters, blood pressure 96/60. HEART: Regular rhythm. ABDOMEN: Soft. LABORATORY DATA: Blood cultures of 11/11 remain negative. There is no new lab today. IMPRESSION: Chronic obstructive pulmonary disease exacerbation. PLAN: P.o. medications. Home in 24-48 hours.
[2017-11-13] MEDS: Cefuroxime Axetil 250 MG TAB PO SCH (20:17)
[2017-11-14] MEDS: predniSONE 20 MG TAB PO SCH (07:47)
[2017-11-14] MEDS: Rosuvastatin 10 MG TAB PO SCH (07:48)
[2017-11-14] MEDS: Citalopram 10 MG TAB PO SCH (07:48)
[2017-11-14] MEDS: Lorazepam 1 MG TAB PO SCH ×2 (07:48→20:52)
[2017-11-14] MEDS: Docusate 100 MG CAP PO SCH ×2 (07:48→20:55)
[2017-11-14] MEDS: Heparin 5,000 UNITS/ML VIAL SC SCH ×4 (07:49→20:57)
[2017-11-14] MEDS: Cefuroxime Axetil 250 MG TAB PO SCH ×2 (07:49→20:51)
[2017-11-14] MEDS: Dronabinol 2.5 MG CAP PO SCH ×2 (09:40→17:41)
--- NOTE | 2017-11-14 10:31 | PDOC.PN ---
- Subjective Encounter Start Date: 11/14/17 Encounter Start Time: 08:50 -: old records requested/rev Patient seen and examined for copd exacerbation, has wheezing, has cough, very weak and confused. No overnight events - Objective Resuscitation Status: Resuscitation Status FULL:Full Resuscitation MAR Reviewed: Yes Vital Signs & Weight: Vital Signs (12 hours) Temp Pulse Resp BP Pulse Ox 11/14/17 08:00 97.9 F 89 18 93 L 11/14/17 07:24 97.9 F 89 18 121/76 93 L 11/14/17 06:10 78 20 93 L I&O: 11/13/17 11/14/17 11/15/17 06:59 06:59 06:59 Intake Total 750 1490 Output Total 500 150 Balance 250 1340 Result Diagrams: 11/12/17 07:25 11/12/17 07:25 Phys Exam - Physical Examination Constitutional: NAD HEENT: PERRLA, moist MMs, sclera anicteric Neck: no JVD, supple Respiratory: wheezing present Cardiovascular: RRR, no significant murmur, no rub Gastrointestinal: soft, non-tender, no distention, positive bowel sounds Musculoskeletal: no edema, pulses present Neurological: non-focal, normal sensation Lymphatic: no nodes Psychiatric: normal affect Skin: no rash, normal turgor Dx/Plan (1) COPD exacerbation Code(s): J44.1 - CHRONIC OBSTRUCTIVE PULMONARY DISEASE W (ACUTE) EXACERBATION Status: Acute (2) Anxiety and depression Code(s): F41.9 - ANXIETY DISORDER, UNSPECIFIED; F32.9 - MAJOR DEPRESSIVE DISORDER, SINGLE EPISODE, UNSPECIFIED Status: Chronic (3) Chronic respiratory failure Code(s): J96.10 - CHRONIC RESPIRATORY FAILURE, UNSP W HYPOXIA OR HYPERCAPNIA Status: Chronic Qualifiers: (4) Physical deconditioning Code(s): R53.81 - OTHER MALAISE Status: Chronic (5) Tobacco abuse Code(s): Z72.0 - TOBACCO USE Status: Chronic - Plan cont current plan of care, continue antibiotics, respiratory therapy * medication reviewed as below * symptomatic treatment * continue respiratory therapy * speech evaluation * not ready for discharge * will need placement. Review of Systems - Review of Systems Eyes: negative: Pain, Vision Change, Conjunctivae Inflammation, Eyelid Inflammation, Redness, Other ENT: negative: Ear Pain, Ear Discharge, Nose Pain, Nose Discharge, Nose Congestion, Mouth Pain, Mouth Swelling, Throat Pain, Throat Swelling, Other Respiratory: Cough, Shortness of Breath, SOB with Excertion, Wheezing. negative : Dry, Hemoptysis, Pleuritic Pain, Sputum Cardiovascular: negative: chest pain, palpitations, orthopnea, paroxysmal nocturnal dyspnea, edema, light headedness, other Gastrointestinal: negative: Nausea, Vomiting, Abdominal Pain, Diarrhea, Constipation, Melena, Hematochezia, Other Genitourinary: negative: Dysuria, Frequency, Incontinence, Hematuria, Retention , Other Musculoskeletal: negative: Neck Pain, Shoulder Pain, Arm Pain, Back Pain, Hand Pain, Leg Pain, Foot Pain, Other Skin: negative: Rash, Lesions, Anjel, Bruising, Other - Medications/Allergies Allergies/Adverse Reactions: Allergies Allergy/AdvReac Type Severity Reaction Status Date / Time lidocaine Allergy Severe Anaphylaxis Verified 07/15/17 03:27 procaine [Procaine] Allergy Severe Anaphylaxis Verified 07/15/17 03:27 Sulfa (Sulfonamide Allergy Unknown Verified 07/15/17 03:27 Antibiotics) codeine Allergy Nausea Verified 07/15/17 03:27 Medications: Current Medications Acetaminophen (Tylenol) 650 mg PO Q4H PRN PRN Reason: Headache/Fever or MILD Pain Last Admin: 11/13/17 08:17 Dose: 650 mg Albuterol Sulfate (Ventolin) 2.5 mg NEB [id number] PRN PRN Reason: SOB &/or Wheezing Albuterol/Ipratropium (Duoneb) 3 ml NEB [id number] [facility] Last Admin: 11/14/17 06:10 Dose: 3 ml Cefuroxime Axetil (Ceftin) 250 mg PO Q12HR [facility] Last Admin: 11/14/17 07:49 Dose: 250 mg Citalopram Hydrobromide (Celexa) 10 mg PO DAILY [facility] Last Admin: 11/14/17 07:48 Dose: 10 mg Docusate Sodium (Colace) 100 mg PO BID [facility] Last Admin: 11/14/17 07:48 Dose: 100 mg Dronabinol (Marinol) 2.5 mg PO BID-AC [facility] Last Admin: 11/14/17 09:40 Dose: 2.5 mg Heparin Sodium (Porcine) (Heparin) 5,000 units SC TID [facility] Last Admin: 11/14/17 07:49 Dose: 5,000 units Lorazepam (Ativan) 2 mg PO BID [facility] Last Admin: 11/14/17 07:48 Dose: 2 mg Magnesium Hydroxide (Milk Of Magnesium) 30 ml PO DAILYPRN PRN PRN Reason: Constipation Ondansetron HCl (Zofran Odt) 4 mg PO Q6HR PRN PRN Reason: Nausea/Vomiting Last Admin: 11/12/17 16:40 Dose: 4 mg Prednisone (Prednisone) 40 mg PO QAM[facility] Last Admin: 11/14/17 07:47 Dose: 40 mg Promethazine HCl (Phenergan) 25 mg PO Q6H PRN PRN Reason: Nausea Quetiapine Fumarate (Seroquel) 50 mg PO HS [facility] Last Admin: 11/13/17 20:17 Dose: 50 mg Rosuvastatin Calcium (Crestor) 10 mg PO DAILY [facility] Last Admin: 11/14/17 07:48 Dose: 10 mg Sodium Chloride (Flush - Normal Saline) 10 ml IVF Q12HR [facility] Last Admin: 11/14/17 07:50 Dose: 10 ml Sodium Chloride (Flush - Normal Saline) 10 ml IVF PRN PRN PRN Reason: Saline Flush Sodium Chloride ([place] Nasal [place] 0.65%) 0 ml EA NARE TID PRN PRN Reason: Nasal Congestion
--- NOTE | 2017-11-14 11:30 | PRG ---
DATE OF SERVICE: 11/14/2017 SUBJECTIVE: Ms. Bauman says she always wheezes. She is still wheezing. PHYSICAL EXAMINATION: GENERAL: On exam today, she is not using accessory muscles. She is in no distress. VITAL SIGNS: She is afebrile, heart rate is 89, respiratory rate 18, oximetry is 93% on 2 liters. LUNGS: Remarkable for diffuse wheezes. HEART: Regular rhythm. ABDOMEN: Soft and nontender. EXTREMITIES: Without edema. She has no neurological deficits. LABORATORY DATA: There is no new lab today. IMPRESSION: Chronic obstructive pulmonary disease exacerbation, slowly improving. She is probably n ot a candidate for discharge at this point. Family has done a good job taking care in the past. I a m not sure if she needs placement per the hospitalist note. Family was not in the room with her. She lives with her daughter and says her daughter takes good care of her. We will continue to follow .
[2017-11-14] MEDS ORDERED: Nicotine 14 MG PATCH TOP SCH (15:00)
[2017-11-15] MEDS: Docusate 100 MG CAP PO SCH ×2 (08:07→20:09)
[2017-11-15] MEDS: Dronabinol 2.5 MG CAP PO SCH ×2 (08:07→17:08)
[2017-11-15] MEDS: predniSONE 20 MG TAB PO SCH (08:09)
[2017-11-15] MEDS: Cefuroxime Axetil 250 MG TAB PO SCH ×2 (08:09→20:11)
[2017-11-15] MEDS: Lorazepam 1 MG TAB PO SCH ×2 (08:10→20:11)
[2017-11-15] MEDS: Citalopram 10 MG TAB PO SCH (08:10)
[2017-11-15] MEDS: Nicotine 14 MG PATCH TOP SCH (08:11)
[2017-11-15] MEDS: Rosuvastatin 10 MG TAB PO SCH (08:11)
[2017-11-15] MEDS: Heparin 5,000 UNITS/ML VIAL SC SCH ×3 (08:12→20:09)
--- NOTE | 2017-11-15 09:14 | PRG ---
DATE OF SERVICE: 11/15/2017 This morning she is lying in bed, awake, responsive. Nurses tell me she has never been ambulating fo r a period of time. PHYSICAL EXAMINATION: VITAL SIGNS: Sats are 96% on 2 liters, temperature 97, blood pressure 140/80. CHEST: Chest reveals diffuse wheezing. CARDIAC: Normal S1, S2, no gallops. ABDOMEN: Soft, no masses. IMPRESSION: 1. Chronic obstructive pulmonary disease exacerbation. 2. Severe deconditioning, bedridden. PLAN: At this stage, continue treatment and empiric antibiotics, steroids. We will follow.
--- NOTE | 2017-11-15 16:59 | PDOC.PN ---
- Subjective Encounter Start Date: 11/15/17 Encounter Start Time: 16:58 Ms. Bauman was seeay in follow-up of COPD exacerbation. She says she feels awful. She is complaining of neck, and back pain and feels short of breath. She also is very weak, and has only sat up at the side of the bed since being the hospital. - Objective Resuscitation Status: Resuscitation Status DNR:Do Not Resuscitate MAR Reviewed: Yes Vital Signs & Weight: Vital Signs (12 hours) Temp Pulse Resp BP Pulse Ox 11/15/17 16:42 97 11/15/17 11:32 83 18 95 11/15/17 08:00 97.7 F 78 20 92 L 11/15/17 07:48 97.7 F 78 20 144/80 H 92 L 11/15/17 06:53 75 14 94 L I&O: 11/14/17 11/15/17 11/16/17 06:59 06:59 06:59 Intake Total 1490 720 Output Total 150 400 Balance 1340 320 Result Diagrams: 11/12/17 07:25 11/12/17 07:25 Phys Exam - Physical Examination HEENT: PERRLA + wheezing and rhonchi- dev and bilateral Cardiovascular: RRR, no significant murmur, no rub Gastrointestinal: soft, non-tender, positive bowel sounds Musculoskeletal: no edema Dx/Plan (1) Acute and chronic respiratory failure Code(s): J96.20 - ACUTE AND CHR RESP FAILURE, UNSP W HYPOXIA OR HYPERCAPNIA Status: Acute (2) COPD exacerbation Code(s): J44.1 - CHRONIC OBSTRUCTIVE PULMONARY DISEASE W (ACUTE) EXACERBATION Status: Acute (3) Anxiety and depression Code(s): F41.9 - ANXIETY DISORDER, UNSPECIFIED; F32.9 - MAJOR DEPRESSIVE DISORDER, SINGLE EPISODE, UNSPECIFIED Status: Chronic (4) Physical deconditioning Code(s): R53.81 - OTHER MALAISE Status: Chronic (5) Tobacco abuse Code(s): Z72.0 - TOBACCO USE Status: Chronic - Plan * Acute on chronic respiratory failure- slowly improving * Severe deconditioning- continue PT/OT * The note from Sola from Palliative care was noted- the patient had an OOH DNR, and the family is considering Hospice. These orders have been placed to reflect the families wishes.
[2017-11-15] MEDS: Mometasone/Formoterol 120 PUFF INHALER INH SCH (19:51)
[2017-11-16] MEDS: Mometasone/Formoterol 120 PUFF INHALER INH SCH ×2 (05:59→19:02)
[2017-11-16] MEDS: Cefuroxime Axetil 250 MG TAB PO SCH ×2 (09:02→20:08)
[2017-11-16] MEDS: Dronabinol 2.5 MG CAP PO SCH ×2 (09:02→16:54)
[2017-11-16] MEDS: Lorazepam 1 MG TAB PO SCH ×2 (09:02→20:08)
[2017-11-16] MEDS: predniSONE 20 MG TAB PO SCH (09:02)
[2017-11-16] MEDS: Citalopram 10 MG TAB PO SCH (09:02)
[2017-11-16] MEDS: Nicotine 14 MG PATCH TOP SCH (09:03)
[2017-11-16] MEDS: Heparin 5,000 UNITS/ML VIAL SC SCH ×3 (09:03→20:08)
[2017-11-16] MEDS: Rosuvastatin 10 MG TAB PO SCH (09:04)
[2017-11-16] MEDS: Docusate 100 MG CAP PO SCH ×2 (09:12→20:08)
--- NOTE | 2017-11-16 11:05 | PRG ---
DATE OF SERVICE: 11/16/2017 SUBJECTIVE: This morning, she is better, less short of breath, but still wheezing. PHYSICAL EXAMINATION: VITAL SIGNS: Sats are 90% on 2 liters, respiration 20, temperature 98, blood pressure 140/87. CHEST: Diffuse wheezing. CARDIAC: Normal S1, S2. No gallops. ABDOMEN: No masses. IMPRESSION: Chronic obstructive pulmonary disease exacerbation, bronchitis, ongoing tobacco abuse. Continue antibiotics, neb treatment and supportive care. Prednisone, PT. Hopefully, will be discharged home in the next 24-48 hours.
--- NOTE | 2017-11-16 15:00 | PDOC.PN ---
- Subjective Encounter Start Date: 11/16/17 Encounter Start Time: 14:58 Ms. Bauman was seen today in follow-up. She says she still feels " bad". She is very weak, and was having trouble even sitting at the side of the bed. - Objective Resuscitation Status: Resuscitation Status DNR:Do Not Resuscitate MAR Reviewed: Yes Vital Signs & Weight: Vital Signs (12 hours) Temp Pulse Resp BP Pulse Ox 11/16/17 11:32 88 16 96 11/16/17 08:00 98 F 87 20 145/87 H 96 11/16/17 05:59 89 18 97 11/16/17 05:55 89 18 97 I&O: 11/15/17 11/16/17 11/17/17 06:59 06:59 06:59 Intake Total 720 480 Output Total 400 100 Balance 320 380 Result Diagrams: 11/12/17 07:25 11/12/17 07:25 Phys Exam - Physical Examination HEENT: PERRLA Respiratory: no rhonchi, wheezing present Cardiovascular: RRR, no significant murmur, no rub Gastrointestinal: soft, non-tender, positive bowel sounds Musculoskeletal: no edema Dx/Plan (1) Acute and chronic respiratory failure Code(s): J96.20 - ACUTE AND CHR RESP FAILURE, UNSP W HYPOXIA OR HYPERCAPNIA Status: Acute (2) COPD exacerbation Code(s): J44.1 - CHRONIC OBSTRUCTIVE PULMONARY DISEASE W (ACUTE) EXACERBATION Status: Acute (3) Anxiety and depression Code(s): F41.9 - ANXIETY DISORDER, UNSPECIFIED; F32.9 - MAJOR DEPRESSIVE DISORDER, SINGLE EPISODE, UNSPECIFIED Status: Chronic (4) Physical deconditioning Code(s): R53.81 - OTHER MALAISE Status: Chronic (5) Tobacco abuse Code(s): Z72.0 - TOBACCO USE Status: Chronic - Plan * COPD exacerbation- She is now on oral antibiotics and oral steroids * She has oxygen at home * She would like to go home tomorrow, and She is nearing time for discharge as per Pulmonology- will discuss with her daughter.
[2017-11-17] MEDS: Mometasone/Formoterol 120 PUFF INHALER INH SCH (06:48)
[2017-11-17] MEDS: predniSONE 20 MG TAB PO SCH (08:17)
[2017-11-17] MEDS: Lorazepam 1 MG TAB PO SCH (08:17)
[2017-11-17] MEDS: Rosuvastatin 10 MG TAB PO SCH (08:17)
[2017-11-17] MEDS: Nicotine 14 MG PATCH TOP SCH (08:18)
[2017-11-17] MEDS: Citalopram 10 MG TAB PO SCH (08:18)
[2017-11-17] MEDS: Ondansetron ODT 4 MG TAB PO PRN (08:18)
[2017-11-17] MEDS: Heparin 5,000 UNITS/ML VIAL SC SCH ×2 (08:18→14:54)
[2017-11-17] MEDS: Docusate 100 MG CAP PO SCH (08:19)
[2017-11-17] MEDS: Cefuroxime Axetil 250 MG TAB PO SCH (09:40)
[2017-11-17] MEDS: Dronabinol 2.5 MG CAP PO SCH (09:40)
--- NOTE | 2017-11-17 09:50 | PRG ---
DATE OF SERVICE: 11/17/2017 She says she is better this morning. PHYSICAL EXAMINATION: VITAL SIGNS: Sats are 94% on 2 liters, respiration 16, temperature is 97, pulse 86, blood pressure 1 10/79. CHEST: Chest reveals decreased breath sounds, no wheezing. CARDIAC: Normal S1, S2. No gallops. IMPRESSION: End-stage chronic obstructive pulmonary disease. DISPOSITION: Placement. In the meantime, O2, nebs, steroids. I will follow.
--- NOTE | 2017-11-17 11:50 | PDOC.PN ---
- Subjective Encounter Start Date: 11/17/17 Encounter Start Time: 11:48 Ms. Bauman was seen today in follow-up. She does not have any complaints. - Objective Resuscitation Status: Resuscitation Status DNR:Do Not Resuscitate MAR Reviewed: Yes Vital Signs & Weight: Vital Signs (12 hours) Temp Pulse Resp BP Pulse Ox 11/17/17 08:00 97.7 F 86 16 94 L 11/17/17 07:49 97.7 F 86 16 117/69 94 L 11/17/17 06:46 91 18 100 I&O: 11/16/17 11/17/17 11/18/17 06:59 06:59 06:59 Intake Total 480 960 Output Total 100 Balance 380 960 Result Diagrams: 11/12/17 07:25 11/12/17 07:25 Phys Exam - Physical Examination HEENT: PERRLA Respiratory: wheezing present, clear to auscultation bilateral Cardiovascular: RRR, no significant murmur, no rub Gastrointestinal: soft, non-tender, positive bowel sounds Musculoskeletal: no edema Dx/Plan (1) Acute and chronic respiratory failure Code(s): J96.20 - ACUTE AND CHR RESP FAILURE, UNSP W HYPOXIA OR HYPERCAPNIA Status: Acute (2) COPD exacerbation Code(s): J44.1 - CHRONIC OBSTRUCTIVE PULMONARY DISEASE W (ACUTE) EXACERBATION Status: Acute (3) Anxiety and depression Code(s): F41.9 - ANXIETY DISORDER, UNSPECIFIED; F32.9 - MAJOR DEPRESSIVE DISORDER, SINGLE EPISODE, UNSPECIFIED Status: Chronic (4) Physical deconditioning Code(s): R53.81 - OTHER MALAISE Status: Chronic (5) Tobacco abuse Code(s): Z72.0 - TOBACCO USE Status: Chronic - Plan * Acute on chronic respiratory failure- improved * Severe Deconditioning- stable * Stable for discharge home on Hospice.
[2017-11-17 12:16] VITALS: BP 122/69; TEMP 98.2
--- NOTE | 2017-11-17 12:40 | DIS ---
DATE OF ADMISSION: 11/11/2017 DATE OF DISCHARGE: 11/17/2017 PRIMARY CARE PHYSICIAN: Oksana Hare M.D. DISCHARGE DISPOSITION: Home. PRIMARY DISCHARGE DIAGNOSES: 1. Acute on chronic respiratory failure with hypoxemia due to chronic obstructive pulmonary disease exacerbation. 2. Hyperlipidemia. 3. Acute kidney injury due to volume depletion. 4. Tobacco abuse. DISCHARGE MEDICATIONS: Include cefuroxime 250 mg twice a day, citalopram 10 mg daily, Marinol 2.5 mg twice a day, DuoNebs q.6 as needed, Dulera 200/5 two puffs twice a day, Zofran 4 mg q.6 as needed, P henergan 25 mg q.6 as needed, Seroquel 50 mg at bedtime, Crestor 10 mg daily, [place] nasal spray p.r.n . CODE STATUS: DNR. ALLERGIES: LIDOCAINE, PROCAINE, SULFA and CODEINE. HOSPITAL COURSE: Ms. Bauman is a very pleasant 77-year-old female who came to the emergency room wit h shortness of breath. She was found to be in a COPD exacerbation. She was admitted and evaluated b y Pulmonology, treated with IV steroids, DuoNebs, and antibiotics. She improved over the course of t he next several days; however, she was still extremely weak and did not improve as much as what had amaya jin hoped. She had been on hospice before, but had transiently gotten better and had revoked hospice . Now that she has had this illness, she is again very weak and could barely sit up at the side of t he bed and the decision was made to send her home on hospice. Her daughter says she will have a 24-h our care at home and is anxious to bring her mom home.
--- NOTE | 2017-11-23 13:49 | PQF ---
[employer] Salesperson Crystal Reports Winform ViewerWILMER MILLANJONATAN Thompson MD [id number] -A- [id number] CLINICAL DOCUMENTATION CLARIFICATION FORM: POST DISCHARGE Please exercise your independent, professional judgment in responding to the clarification form. Clinical indicators are provided on the bottom of this form for your review. Thank you. Diagnosis: ___Acute on chronic respiratory failure with hypoxemia Present on Admission (POA): [ ] Yes [ ] No [ ] Unable to determine Coding guidelines require hospitals to identify whether a diagnosis was present on admission (POA) or not. To accurately assign the appropriate POA indicator, this information must be clearly documented within the medical record. CLINICAL INDICATORS - SIGNS / SYMPTOMS / LABS COPD exacerbation - HP 11/11/17 Sats 94% on RA, Pulse 112, Resp 24, 93% on 3L oxygen, Respiratory Chest: moderate respiratory distress, wheezing present, audibly, rhonchi present - Emergency Reord 11/11/17 RISK FACTORS: COPD exacerbationm smokes 1 pack of cigarettes per day, chronic respiratory failure - HP 11/11/17 TREATMENT: oxygen supplementation - HP 11/11/17 (This form is maintained as a part of the permanent medical record) 2014 [employer]. All Rights Reserved Angi Sanz, CCS, MACHINE PRESERVATIVE FILLER, CASC -[employer]cted [employer]
== END 2017-11-17 16:13 | disposition hospice, home (50) | DRG 190 ==
LOC: ERS 16:12 → T4-A 19:43
PROVIDERS: ADMIT Internal Medicine Infectious Disease; ATTEND Internal Medicine Infectious Disease
DX: J44.1 Chronic obstructive pulmonary disease with (acute) exacerbation (principal); J96.21 Acute and chronic respiratory failure with hypoxia; N17.9 Acute kidney failure, unspecified; F17.210 Nicotine dependence, cigarettes, uncomplicated; F32.9 Major depressive disorder, single episode, unspecified; E78.5 Hyperlipidemia, unspecified; F41.9 Anxiety disorder, unspecified; R53.81 Other malaise; Z90.49 Acquired absence of other specified parts of digestive tract; Z90.710 Acquired absence of both cervix and uterus
CPT/HCPCS: 36415; 71045; 80048; 80053; 82553; 83880; 84484; 85025; 87040; 93005; 94640; 94760; 96365; 96367; A4216; G8996-GN-CJ; G8996-GN-CK; G8997-GN-CI; J0456; J0696; J1644; J2920; J7050; J7506; J7611; J7620; Q0162; Q0167